=== PATIENT | male | born 1990 | race Caucasian/White ===

== ENCOUNTER 2024-05-21 15:49 | Emergency (ER) | payer OTHER, SELFPAY ==
--- NOTE | 2024-05-21 15:56 | ED.LOWEXIN ---
HPI - Extremity Injury (Lower) General Chief Complaint: Extremity Injury, Lower Stated Complaint: Right Knee Injury Time Seen by Provider: 05/21/24 16:46 Source: patient and RN notes reviewed Mode of arrival: ambulatory Limitations: no limitations History of Present Illness HPI Narrative: 34-year-old male presents with concern for right knee pain. Reports he was standing up from a kneeling position when he felt a pop in his right medial knee. He reports that hurt worse than it does now. He denies any swelling. He denies any previous history or problems with the knee. He denies any direct injury or trauma. complaint: knee injury Related Data Home Medications Medication Instructions Recorded Confirmed atorvastatin 20 mg tablet mg 05/21/24 Allergies Allergy/AdvReac Type Severity Reaction Status Date / Time No Known Allergies Allergy Verified 05/21/24 16:01 Review of Systems Review of Systems: CONSTITUTIONAL: Denies malaise, chills, sweats, or fever. SKIN: Denies rash or itching, open skin, laceration, abrasion, redness, warmth, swelling. MUSCULOSKELETAL: Reports right knee pain NEUROLOGIC: Denies numbness, weakness All systems reviewed & are unremarkable except as noted in HPI and below PMFSH Comments At time of signature, agree with nursing past medical, surgical, social and family history. There is no relevant family history pertinent to the presenting complaint Exam Narrative: GENERAL: Well-appearing, well-nourished, and in no acute distress. HEAD: Normocephalic, atraumatic. EYES: PERRLA, conjunctivae clear NECK: Supple. CHEST: Speaks in full sentences. No respiratory distress. HEART: Regular rate and rhythm. Normal and equal peripheral pulses. EXTREMITIES: Right knee has normal strength and sensation, normal range of motion. No edema or ecchymosis. Normal sensation with sensitivity to light touch and pain. No point tenderness. No open wounds, no skin tenting, no devitalized tissue or atrophy, no trophic changes, no obvious deformity, alignment normal, nearby joints and structures intact. Distal pulses palpable and equal bilaterally, skin warm, dry, pink. Capillary refill less than 3 seconds. Lever test negative SKIN: Warm, dry, no rash. NEURO: Alert and oriented x3. PSYCH: Normal mood and affect Course Course Emergency Course: Patient is aware of diagnosis, understands and agrees to treatment plan. Anticipatory guidance given. Patient agrees to follow-up as directed and is aware of reasons to seek care at the emergency department. Portions of this record may have been created with voice recognition software Level of Care: Express Care Visit Vital Signs Vital signs: Vital Signs Temperature 97.9 F 05/21/24 15:59 Pulse Rate 84 05/21/24 15:59 Respiratory Rate 16 05/21/24 15:59 Blood Pressure 155/94 H 05/21/24 15:59 Pulse Oximetry 98 05/21/24 15:59 Oxygen Delivery Room Air 05/21/24 15:59 Temperature 97.9 F 05/21/24 15:59 Pulse Rate 84 05/21/24 15:59 Respiratory Rate 16 05/21/24 15:59 Blood Pressure 155/94 H 05/21/24 15:59 Pulse Oximetry 98 05/21/24 15:59 Oxygen Delivery Room Air 05/21/24 15:59 Reviewed. MDM - Extremity Injury (Lower) MDM Narrative Medical decision making narrative: Patients injury and pain is consistent with musculoskeletal etiology. No signs of neurological or vascular compromise on exam. Compartments and tissues are soft without signs of compartment syndrome. Pain is felt appropriate for further evaluation on an outpatient basis. Critical Care Time Critical Care Time Critical Care Time: No Discharge Plan Discharge Clinical Impression: Injury of knee Patient Disposition: Home, Self-Care Condition: Stable Instructions: Knee Sprain (ED) Additional Instructions: Avoid activities that cause pain until the pain subsides. Ice to the area 20-30 minutes 4-6 times a day Elevate above heart Elastic wrap as
[2024-05-21 15:59] VITALS: BP 155/94; PULSE 84; RESP 16; TEMP 36.6; O2SAT 98
== END 2024-05-21 17:01 | disposition home or self-care (01) ==
PROVIDERS: Emergency Provider Nurse Practitioner; PCP Internal Medicine
DX: S89.91XA Unspecified injury of right lower leg, initial encounter (principal); X50.9XXA Other and unspecified overexertion or strenuous movements or postures, initial encounter; E78.00 Pure hypercholesterolemia, unspecified
CPT/HCPCS: 99202; G0463

== ENCOUNTER 2025-02-04 18:45 | Emergency (ER) | payer OTHER, SELFPAY ==
--- NOTE | ~2025-02-04 | XR_ITS ---
XR finger 3rd LT min 2V Ordering provider: Lo Gorman APRN History: . puncture from nail gun at lat PIP joint . Comparison: None. FINDINGS: BONES: No acute fracture or dislocation. JOINT SPACES: Normal. SOFT TISSUES: Normal. IMPRESSION: No acute osseous abnormality. Reviewed, dictated and finalized at location A.
--- OUTSIDE RECORDS SUMMARY | 2025-02-04 18:48 | XMS_ITS | Clinical Summary ---
Author Organization [facility] Address [address] [place] [id number] Care Team Providers Care Home Staging Specialist Name Role Phone lAberto Vázquez MD Primary Care Provider [phone] Allergies Active Allergy Reactions Criticality Noted Date Comments Nickel Medications ibuprofen (ADVIL,MOTRIN) 600 mg tablet Take 1 tablet (600 mg total) by mouth every 6 (six) hours as needed for pain Active multivitamin tabletIndications: Vitamin Deficiency Prevention Take 1 tablet by mouth daily Active atorvastatin (LIPITOR) 20 mg tabletIndications: Mixed hyperlipidemia TAKE 1 TABLET BY MOUTH EVERY DAY 90 tablet 1 01/23/20 25 Active atorvastatin (LIPITOR) 20 mg tabletIndications: Mixed hyperlipidemia TAKE 1 TABLET BY MOUTH EVERY DAY 90 tablet 1 07/17/20 24 025 Discontinued Active Problems Problem Noted Date Diagnosed Date Right foot pain 10/23/2024 Assessment & Plan (10/23/2024 5:28 PM E TAILER): Pain over the top of the right foot 2nd through 4th metatarsals no direct trauma to the foot. He had an x-ray of right foot. Patient has started Advil for pain. Sleep disorder, nonorganic 01/15/2024 Assessment & Plan (10/23/2024 5:27 PM E TAILER): Patient has sleep problems have resolved. Assessment & Plan (04/21/2024 4:52 PM CDT): Discussing patient's sleep pattern he does not have non restorative sleep he wakes up rested. Does have poor sleep hygiene he notes a lot of office work in the bedroom and computer work. No therapeutic intervention suggested Assessment & Plan (01/15/2024 5:41 PM CDT): Patient complains he can talking with him he is getting non restorative sleep he goes to bed frequently 9-10 o'clock at night and often times wake up 1-2 o'clock in the morning can not return to sleep until about 6:00 a.m. when he needs to be up at 6:45 a.m.. Talking with this patient he has poor sleep hygiene comes home spends most of the time in his bedroom is become office in recreation area for him. Patient is given a handout regarding sleep hygiene will discuss this response on his next visit several months. Mixed hyperlipidemia 07/17/2023 Assessment & Plan (10/23/2024 5:27 PM E TAILER): Patient remain on Lipitor 20 mg daily Component Latest Ref Rng 07/12/2023 04/21/2024 Cholesterol 30 - 199 mg/dL 239 (H) 176 Triglycerides <=149 mg/dL 293 (H) 221 (H) HDL Cholesterol >=40 mg/dL 31 (L) 32 (L) LDL Cholesterol Calc <=129 mg/dL 149 (H) 100 Non-HDL Cholesterol mg/dL 208 144 Chol/HDL ratio 8 6 Legend: (H) High (L) Low Assessment & Plan (04/21/2024 4:50 PM CDT): Patient is tolerating Crestor 20 mg daily will update his lipid profile at this time Assessment & Plan (01/15/2024 5:37 PM CDT): Patient's out of medicine 3-4 months. Encouraged him resume medication which he will. Recheck his lipid profile in months. Component Latest Ref Rng 07/12/2023 Cholesterol 30 - 199 mg/dL 239 (H) Triglycerides <=149 mg/dL 293 (H) HDL Cholesterol >=40 mg/dL 31 (L) LDL Cholesterol Calc <=129 mg/dL 149 (H) Non-HDL Cholesterol mg/dL 208 Chol/HDL ratio 8 Legend: (H) High (L) Low Assessment & Plan (07/17/2023 2:34 PM CDT): Cholesterol total increase to 239. Triglycerides were 508 . Patient took cholesterol medicines most 3 days a week. Talked about atherosclerotic risk factors patient will attempt to take the medicine least 7 days a week at this time. Has been exercising or being more physical he is lost. 7 lb since his visit in March. Component Latest Ref Rng 03/27/2023 Cholesterol 30 - 199 mg/dL 227 (H) Triglycerides <=149 mg/dL 508 (H) HDL Cholesterol >=40 mg/dL 30 (L) LDL Cholesterol Calc <=129 mg/dL See Comment Non-HDL Cholesterol mg/dL 197 Chol/HDL ratio 8 Legend: (H) High (L) Low Preventative health care 03/27/2023 Assessment & Plan (10/23/2024 5:25 PM E TAILER): History and physical completed patient's health risk assessment health maintenance reviewed and addressed. There is a difference in patient's weight from last visit however this may be related to close which he is wearing steel toe shoes via closed because of the winter. Patient does have hyperlipidemia he is responding to medication. Hepatitis-C screening is requested. Profile reviewed will repeat lipid profile next several months Assessment & Plan (03/27/2023 3:52 PM CDT): 33-year-old gentleman who is a new patient to me was seen in emergency room for fractured left toe. Has not seen physicians since approximately age 17 he works as a project construction assistant manager. And he is interested in stops smoking. No knowledge of any health problems in the past. Patient's refer to the health department for his immunizations on Tdap. Closed fracture of one or more phalanges of foot 03/27/2023 Assessment & Plan (03/27/2023 7:03 PM CDT): Patient's pain is minimal at this time has construction work and he has been wearing the thick soled boot with a lot of support and he is getting better. Get a repeat x-ray in about 3 weeks. Not required any pain medication. Nicotine dependence 03/27/2023 Assessment & Plan (01/15/2024 5:36 PM CDT): Patient has reduced his nicotine approximate 20%. Method of intake is vaping. Many years ago he was able to stop 18 months. Been using nicotine for approximate 10 years. Assessment & Plan (07/17/2023 2:30 PM CDT): Patient vapes he would like to stop smoking he is attempted is unsuccessful. Start this patient on Chantix. Advised him does no information on Chantix and effect risk regarding vaping he is nicotine dependent. Assessment & Plan (03/27/2023 3:53 PM CDT): Previous pack-a-day smoker stopped in 2020 and several months later resume smoking. However this time he resume nicotine habit by vaping. He is had with draw some when trying to discontinue nicotine. Wellbutrin 150 mg twice a day as prescribed this for 3 months. Moderate obesity 03/27/2023 Assessment & Plan (04/21/2024 4:51 PM CDT): Obesity with concurrent hyperlipidemia patient's weight is stable not at goal. BMI is 35.83 Assessment & Plan (03/27/2023 3:54 PM CDT): Patient's BMI is 36.8 he has not had any lab work done in the last decade. Do a FLP and BMP on this gentleman looking for evidence of hyperlipidemia or diabetes. Immunizations Immunization Administration Dates Next Due DTaP 01/25/1996, 2,1991,1991,0 1991 Hep B, Adolescent or Pediatric 02/11/2001,1999,07/18/2000 IPV 01/25/1996,09/29/1992,1991 ,1991 Influenza, Unspecified 10/23/2024(Deferred: Radha ent Refused) MMR 01/25/1996,12/03/1992 Tdap 07/09/2006 Social History Tobacco Use Types Packs/Day Years Used Date Smoking Tobacco: Never Smokeless Tobacco: Never PHQ-2 Answer Date Recorded PHQ-2 Total Score (If total score is 3 or more points, staff should administer the PHQ-9) 0 10/23/2024 Personal Safety Answer Date Recorded Have you ever been in or are you currently in a harmful physical or emotional relationship or is someone making you feel afraid or unsafe? Denies 03/17/2023 Sex and Gender Information Value Date Recorded Sex Assigned at Not on file Legal Sex Male 7:59 AM CDT Gender Identity Not on file Sexual Orientation Not on file Obstetrics History Last Filed Vital Signs Vital Sign Reading Time Taken Comments Blood Pressure 134/80 10/23/2024 3:07 PM E TAILER Pulse 90 10/23/2024 3:07 PM E TAILER Temperature 36.6 C (97.8 F) 10/23/2024 3:07 PM E TAILER Respiratory Rate 16 10/23/2024 3:07 PM E TAILER Oxygen Saturation 97% 10/23/2024 3:07 PM E TAILER Inhaled Oxygen Concentration - - Weight 131.3 kg (289 lb 6.4 oz) 10/23/2024 3:07 PM E TAILER Height 188 cm (6' 2 ) 10/23/2024 3:07 PM E TAILER Body Mass Index 37.16 10/23/2024 3:07 PM E TAILER Plan of Treatment Health Maintenance Due Date Last Done Comments Hepatitis C Screening 1990 Varicella Vaccines (1 of 2 - 13+ 2-dose series) 01/11/2004 DTaP/Tdap/Td Vaccine (7 - Td or Tdap) 07/09/2016 07/09/2006, 01/25/1996, 09/29/1992, Additional history exists Influenza Vaccine (Season Ended) 2025 Depression Screening 10/23/2025 10/23/2024, 03/27/20 23 Regular Well Visit/Exam 18-64 10/23/2025 10/23/2024 Hepatitis B Screening Completed 02/11/2001 , 09/05/2000, 07/18/2000 HPV Vaccines Aged Out No longer eligi ble based on patient's age to complete this topic Pneumococcal vaccine <65 Aged Out No longer eligible based on patient's age to complete this topic Insurance [employer] [facility] [employer] [facility] Care Teams Home Staging Specialist Relationship Specialty Start Date End Date Alberto Vázquez MD PCP - General Internal Medicine 03/27/23
--- OUTSIDE RECORDS SUMMARY | 2025-02-04 18:48 | XMS_ITS | Referral Summary ---
Author Organization [facility] Address [address] [place] [id number] Care Team Providers Care House Builder Name Role Phone Alberto Vázquez MD Primary Care Provider [phone]- [phone] Allergies Active Allergy Reactions Criticality Noted Date [...] 10/23/2024 Assessment & Plan (10/23/2024 5:28 PM SEED CORN PRODUCTION MANAGER): Pain over the top of the right foot 2nd through 4th metatarsals no direct trauma to the foot. He had an x-ray of right foot. Patient has started Advil for pain. Sleep disorder, nonorganic 01/15/2024 Assessment & Plan (10/23/2024 5:27 PM SEED [employer]N PRODUCTION MANAGER): Patient has sleep problems have resolved. Assessment [...] 07/17/2023 Assessment & Plan (10/23/2024 5:27 PM SEED [employer] PRODUCTION MANAGER): Patient remain on Lipitor 20 mg daily [...] 03/27/2023 Assessment & Plan (10/23/2024 5:25 PM SEED [employer]N PRODUCTION MANAGER): History and physical completed patient's health risk [...] 17 he works as a project construction manager. And he is interested in stops [...] on file Sexual Orientation Not on file Last Filed Vital Signs Vital Sign Reading Time Taken Comments Blood Pressure 134/80 10/23/2024 3:07 PM SEED [employer]N PRODUCTION MANAGER Pulse 90 10/23/2024 3:07 PM SEED CORN PRODUCTION MANAGER Temperature 36.6 C (97.8 F) 10/23/2024 3:07 PM SEED CORN PRODUCTION MANAGER Respiratory Rate 16 10/23/2024 3:07 PM SEED [employer]N PRODUCTION MANAGER Oxygen Saturation 97% 10/23/2024 3:07 PM SEED CORN PRODUCTION MANAGER Inhaled Oxygen Concentration - - Weight 131.3 kg (289 lb 6.4 oz) 10/23/2024 3:07 PM SEED CORN PRODUCTION MANAGER Height 188 cm (6' 2 ) 10/23/2024 3:07 PM SEED [employer]N PRODUCTION MANAGER Body Mass Index 37.16 10/23/2024 3:07 PM SEED [employer]N PRODUCTION MANAGER Plan of Treatment Not on file Insurance [facility] Care Teams House Builder Relationship Specialty Start Date End Date Alberto Vázquez MD PCP - General Internal Medicine 03/27/23
[2025-02-04 18:51] VITALS: BP 158/95; PULSE 87; RESP 16; TEMP 36.6; O2SAT 98
--- NOTE | 2025-02-04 19:08 | ED.UPPEXIN ---
HPI - Extremity Injury (Upper) General Chief Complaint: Extremity Injury, Upper Stated Complaint: Puncture Wound/Finger Source: patient Mode of arrival: ambulatory Limitations: no limitations History of Present Illness HPI narrative: 35-year-old male presented for complaint of pain and swelling to the left middle finger. Reports a puncture wound sustained yesterday while using a nail gun, the nail went through the material and struck his finger on the other side. Pt says the nail was 1.75 inches but unsure how far it went into the finger. Endorses decreased ROM due to swelling and pain. No drainage, decreased sensation or discoloration. Tetanus utd. Related Data Home Medications ?Medication ?Instructions ?Recorded ?Confirmed ?Last Taken ?Type atorvastatin 20 mg tablet mg 05/21/24 Unknown History Allergies Allergy/AdvReac Type Severity Reaction Status Date / Time No Known Allergies Allergy Verified 02/04/25 18:56 Review of Systems Review of Systems: per HPI All systems reviewed & are unremarkable except as noted in HPI and below PMFSH Comments At time of signature, I have reviewed and agree with nursing past medical, surgical, social and family history unless otherwise noted. Please see nursing chart for further information. There is no relevant family history pertinent to the presenting complaint Exam Narrative: GENERAL: Well-appearing, well-nourished, and in no acute distress. CHEST: No respiratory distress. HEART: Regular rate and rhythm. Normal and equal peripheral pulses. EXTREMITIES: Left 3rd digit with pinpoint puncture wound to the radial side of the PIP; tender with palpation. Mild swelling to PIP. Digit has normal strength and sensation, slightly decreased range of motion with flexion due to swelling/pain. No ecchymosis, or obvious deformity; alignment normal, pulse palpable and equal bilaterally, skin warm, dry, pink. Capillary refill less than 3 seconds. SKIN: Warm, dry, no rash. NEURO: Alert and oriented x3. PSYCH: Normal mood and affect Course Course Emergency Course: Patient is aware of diagnosis, understands and agrees to treatment plan. Anticipatory guidance given. Patient agrees to follow-up as directed and is aware of reasons to seek care at the emergency department. Portions of this record may have been created with voice recognition software Level of Care: Express Care Visit Vital Signs Vital signs: Vital Signs Temperature 98 F 02/04/25 18:51 Pulse Rate 87 02/04/25 18:51 Respiratory Rate 16 02/04/25 18:51 Blood Pressure 158/95 H 02/04/25 18:51 Pulse Oximetry 98 02/04/25 18:51 Oxygen Delivery Room Air 02/04/25 18:51 Temperature 98 F 02/04/25 18:51 Pulse Rate 87 02/04/25 18:51 Respiratory Rate 16 02/04/25 18:51 Blood Pressure 158/95 H 02/04/25 18:51 Pulse Oximetry 98 02/04/25 18:51 Oxygen Delivery Room Air 02/04/25 18:51 Reviewed MDM - Extremity Injury (Upper) MDM Narrative Medical decision making narrative: Discussed physical exam findings and xray. Advised supportive measures and signs/symptoms to go to the ER. Pt is appropriate for outpt treatment and f/u as needed with hand specialist.. Differential Diagnosis Differential diagnosis: Likely other (laceration, abrasion, avulsion, fracture, contusion) Imaging Data Radiologist's impression: Patient: Steve Chamberlain : 1990 MR#: [id number] Age: 35 Acct:[id number] Loc: [facility] ADM Date: 02/04/25Attending Dr: Ordering Physician: Lo Gorman APRN Date of Service: 02/04/25 Procedure(s): XR finger 3rd LT min 2V Accession Number(s): [id number] cc: Kathie, Alberto Patiño; Lo Gorman APRN~ XR finger 3rd LT min 2V Ordering provider: Lo Gorman APRN History: . puncture from nail gun at lat PIP joint . Comparison: None. FINDINGS: BONES: No acute fracture or dislocation. JOINT SPACES: Normal. SOFT TISSUES: Normal. IMPRESSION: No acute osseous abnormality. Discharge Plan Discharge Clinical Impression: Puncture wound Patient Disposition: Home Condition: Stable Instructions: Antibiotic Form, Puncture Wound (ED) Additional Instructions: Keep the area clean and dry - cleanse at least twice daily with warm water and mild soap and allow to fully dry. Ok to apply neosporin to the site Tylenol or ibuprofen for pain Take antibiotic as directed Watch for worsening symptoms including pain, redness, swelling, streaking, pus/drainage, fever. Go to the ER with any of these symptoms or concerns. Follow up with primary care provider as needed Follow up with the Hand specialist, call to schedule an appointment. Patient Language: Irish Prescriptions: New cephalexin 500 mg capsule 500 mg PO Q12H 5 Days Qty: 10 0RF No Action atorvastatin 20 mg tablet Follow-up/Referrals: Krystal Logan MD [Physician] - [place],Alberto Patiño MD [Primary Care Provider] - Time of Disposition: 19:37
== END 2025-02-04 19:40 | disposition home or self-care (01) ==
PROVIDERS: Emergency Provider Nurse Practitioner Family; PCP Internal Medicine
DX: S61.233A Puncture wound without foreign body of left middle finger without damage to nail, initial encounter (principal); W29.4XXA Contact with nail gun, initial encounter; E78.00 Pure hypercholesterolemia, unspecified
CPT/HCPCS: 73140; 99213; G0463